=== PATIENT | female | born 1965 | race Caucasian/White ===

== ENCOUNTER 2019-10-11 14:16 | Emergency (ER) | payer OTHER ==
[~2019-10-11] VITALS: Ht 160 cm; Wt 49.0 kg
[2019-10-11] MEDS ORDERED: NITROGLYCERIN 0.4 MG SL TABS BTL 25'S SL ONE (14:26)
[2019-10-11] MEDS ORDERED: ASPIRIN 81 MG CHEW (CHILDREN'S ASA) PO ONE (14:30)
[2019-10-11 14:39] LABS: BASOPHILS % (AUTO) 0 % (0-10); EOSINOPHILS % (AUTO) 1 % (0-10); HEMATOCRIT 40 % (35-52); HEMOGLOBIN 13.6 G/DL (11.5-16.0); LYMPHOCYTES # (AUTO) 0.5 X 10^3 (1.0-4.0); LYMPHOCYTES % (AUTO) 7 % (12-44); MEAN CORPUSCULAR HEMOGLOBIN 33 PG (25-34); MEAN CORPUSCULAR HGB CONC 34 G/DL (32-36); MEAN CORPUSCULAR VOLUME 96 FL (80-99); MEAN PLATELET VOLUME 9.4 FL (7.4-10.4); MONOCYTES # (AUTO) 0.2 X 10^3 (0.0-1.0); MONOCYTES % (AUTO) 4 % (0-12); NEUTROPHILS # (AUTO) 5.5 X 10^3 (1.8-7.8); NEUTROPHILS % (AUTO) 88 % (42-75); PLATELET COUNT 196 10^3/uL (130-400); RED CELL DISTRIBUTION WIDTH 11.6 % (10.0-14.5); WHITE BLOOD COUNT 6.2 10^3/uL (4.3-11.0)
--- NOTE | 2019-10-11 14:43 | ED Cardiac General ---
History of Present Illness General Chief Complaint: Chest Pain Stated Complaint: NAUSEA,LIGHTHEADED,CHEST PAIN Source: patient Exam Limitations: no limitations History of Present Illness Date Seen by Provider: Oct 11, 2019 Time Seen by Provider: 14:40 Initial Comments ER with nausea without vomiting since 7:30 this morning, she also has some chest tightness in the center of her chest. Nothing exacerbates or alleviates the pain described as a tightness at 7 out of 10. No history of this. History of bilateral mastectomy due to positive BRCA gene. Timing/Duration: changing over time Severity: moderate Location: central Activities at Onset: none NTG SL DYE BLENDER: No ASA po DYE BLENDER: No Associated Systoms: Chest Pain; No Cough; Nausea/Vomiting Allergies and Home Medications Allergies Coded Allergies: No Known Drug Allergies (Unverified , 10/11/19) Patient Home Medication List Home Medication List Reviewed: Yes Review of Systems Review of Systems Constitutional: see HPI EENTM: No Symptoms Reported Cardiovascular: See HPI, Chest Pain Gastrointestinal: Nausea Genitourinary: No Symptoms Reported Musculoskeletal: no symptoms reported Skin: no symptoms reported Psychiatric/Neurological: No Symptoms Reported Endocrine: No Symptoms Reported Hematologic/Lymphatic: No Symptoms Reported Past Ymvmywi-Wejipv-Cpttgk Hx Patient Social History Recent Foreign Travel: No Contact w/Someone Who Travel: No Physical Exam Vital Signs Vital Signs - First Documented 10/11/19 14:19 Temp 38.2 Pulse 85 Resp 20 B/P (MAP) 116/73 (87) Pulse Ox 99 O2 Delivery Room Air Capillary Refill : Height, Weight, BMI Height: '" Weight: lbs. oz. kg; BMI Method: General Appearance: No Apparent Distress, WD/WN HEENT: PERRL/EOMI, TMs Normal Respiratory: No Accessory Muscle Use, No Respiratory Distress Cardiovascular: Regular Rate, Rhythm, Normal Peripheral Pulses Gastrointestinal: Normal Bowel Sounds, Non Tender, Soft Extremity: Normal Capillary Refill, Normal Inspection Neurologic/Psychiatric: Alert, Oriented x3 Skin: Normal Color, Warm/Dry Progress/Results/Core Measures Results/Orders Lab Results Laboratory Tests Test 10/11/19 14:30 10/11/19 16:55 Range/Units White Blood Count 6.2 4.3-11.0 10^3/uL Red Blood Count 4.18 L 4.35-5.85 10^6/uL Hemoglobin 13.6 11.5-16.0 G/DL Hematocrit 40 35-52 % Mean Corpuscular Volume 96 80-99 FL Mean Corpuscular Hemoglobin 33 25-34 PG Mean Corpuscular Hemoglobin Concent 34 32-36 G/DL Red Cell Distribution Width 11.6 10.0-14.5 % Platelet Count 196 130-400 10^3/uL Mean Platelet Volume 9.4 7.4-10.4 FL Neutrophils (%) (Auto) 88 H 42-75 % Lymphocytes (%) (Auto) 7 L 12-44 % Monocytes (%) (Auto) 4 0-12 % Eosinophils (%) (Auto) 1 0-10 % Basophils (%) (Auto) 0 0-10 % Neutrophils # (Auto) 5.5 1.8-7.8 X 10^3 Lymphocytes # (Auto) 0.5 L 1.0-4.0 X 10^3 Monocytes # (Auto) 0.2 0.0-1.0 X 10^3 Eosinophils # (Auto) 0.0 0.0-0.3 10^3/uL Basophils # (Auto) 0.0 0.0-0.1 10^3/uL Neutrophils % (Manual) 88 % Lymphocytes % (Manual) 7 % Monocytes % (Manual) 5 % Blood Morphology Comment NORMAL Prothrombin Time 13.2 12.2-14.7 SEC INR Comment 1.0 0.8-1.4 Activated Partial Thromboplast Time 30 24-35 SEC Sodium Level 141 135-145 MMOL/L Potassium Level 3.9 3.6-5.0 MMOL/L Chloride Level 106 98-107 MMOL/L Carbon Dioxide Level 28 21-32 MMOL/L Anion Gap 7 5-14 MMOL/L Blood Urea Nitrogen 16 7-18 MG/DL Creatinine 0.69 0.60-1.30 MG/DL Estimat Glomerular Filtration Rate > 60 BUN/Creatinine Ratio 23 Glucose Level 112 H 70-105 MG/DL Calcium Level 9.3 8.5-10.1 MG/DL Corrected Calcium 8.5-10.1 MG/DL Magnesium Level 1.9 1.6-2.4 MG/DL Total Bilirubin 0.6 0.1-1.0 MG/DL Aspartate Amino Transf (AST/SGOT) 18 5-34 U/L Alanine Aminotransferase (ALT/SGPT) 15 0-55 U/L Alkaline Phosphatase 71 40-136 U/L Myoglobin 28.1 10.0-92.0 NG/ML Troponin I < 0.028 < 0.028 <0.028 NG/ML Total Protein 7.3 6.4-8.2 GM/DL Albumin 4.7 H 3.2-4.5 GM/DL Micro Results Microbiology 10/11/19 Influenza Types A,B Antigen ([facility]) - Final, Complete My Orders Orders - BENJI BEAVER APRN Cbc With Automated Diff (10/11/19 14:21) Magnesium (10/11/19 14:21) Chest 1 View, Ap/Pa Only (10/11/19 14:21) Ekg Tracing (10/11/19 14:21) Comprehensive Metabolic Panel (10/11/19 14:21) Myoglobin Serum (10/11/19 14:21) Protime With Inr (10/11/19 14:21) Partial Thromboplastin Time (10/11/19 14:21) O2 (10/11/19 14:21) Monitor-Rhythm Ecg Trace Only (10/11/19 14:21) Lipid Panel (10/12/19 06:00) Ed Iv/Invasive Line Start (10/11/19 14:21) Aspirin Chewable Tablet (Baby Aspirin Ch (10/11/19 14:30) Nitroglycerin 0.4 Mg Btl 25's (Nitrostat (10/11/19 14:26) Influenza A And B Antigens (10/11/19 14:38) Manual Differential (10/11/19 14:30) Troponin I (10/11/19 14:30) Antacid Suspension (Mylanta Suspension (10/11/19 15:30) Lidocaine 2% Viscous 15 Ml (Xylocaine Vi (10/11/19 15:30) Troponin I (10/11/19 16:13) Ketorolac Injection (Toradol Injection) (10/11/19 17:30) Fentanyl Injection (Sublimaze Injection (10/11/19 17:30) Fentanyl Injection (Sublimaze Injection (10/11/19 17:24) Ketorolac Injection (Toradol Injection) (10/11/19 17:24) Ondansetron Injection (Zofran Injectio (10/11/19 18:00) Medications Given in ED Current Medications Medications Dose Ordered Sig/Lida Route Start Time Stop Time Status Last Admin Dose Admin Al Hydrox/Mg Hydrox/Simethicone 30 ml ONCE ONCE PO 10/11/19 15:30 10/11/19 15:31 DC 10/11/19 15:47 30 ML Aspirin 324 mg ONCE ONCE PO 10/11/19 14:30 10/11/19 14:31 DC 10/11/19 14:31 324 MG Fentanyl Citrate 25 mcg ONCE PRN IVP 10/11/19 17:30 10/11/19 17:33 25 MCG Ketorolac Tromethamine 15 mg ONCE ONCE IVP 10/11/19 17:30 10/11/19 17:31 DC 10/11/19 17:33 15 MG Lidocaine HCl 10 ml ONCE ONCE PO 10/11/19 15:30 10/11/19 15:31 DC 10/11/19 15:47 10 ML Nitroglycerin 0.4 mg STK-MED ONCE SL 10/11/19 14:26 10/11/19 14:31 DC 10/11/19 14:34 0.4 MG Ondansetron HCl 8 mg ONCE ONCE IVP 10/11/19 18:00 10/11/19 18:01 DC 10/11/19 18:08 8 MG Vital Signs/I&O 10/11/19 10/11/19 10/11/19 14:19 17:33 17:33 Temp 38.2 38.2 38.2 Pulse 85 Resp 20 B/P (MAP) 116/73 (87) Pulse Ox 99 O2 Delivery Room Air Diagnostic Imaging Diagonstic Imaging: Xray Comments NAME: ANASTASIYA YANG [facility] REC#: [id number] PT STATUS: REG ER : 1965 PHYSICIAN: BENJI BEAVER COLOR DIPPER ADMIT DATE: 10/11/19/ER Draft Date of Exam:10/11/19 CHEST 1 VIEW, AP/PA ONLY INDICATION: Lightheadedness and nausea. FINDINGS: The lungs are clear. There is no failure, effusion, or pneumothorax. IMPRESSION: No acute appearing abnormality. Dictated on workstation # [id number] Dict: 10/11/19 1513 Trans: 10/11/19 1515 [id number] Interpreted by: SANDI WASHINGTON Electronically signed by: Departure Communication (Admissions) Pain from the chest is gone, now is more of a bandlike pain left upper quadrant and right upper quadrant sparing the epigastric region. She now complains of a headache. Toradol and fentanyl given. 1817-advised to follow-up with primary care. Patient states that she sees [facility]. Unfortunately I'm not able to find etiology for the pain from the emergency room evaluation today. Impression Primary Impression: Chest pain Qualified Codes: R07.9 - Chest pain, unspecified Disposition: HOME, SELF-CARE Condition: Stable Departure-Patient Inst. Decision time for Depature: 17:29 Patient Instructions: Chest Pain (DC) Add. Discharge Instructions: 1. Follow-up with your regular doctor later this week for recheck 2. Return to ER for any concerns All discharge instructions reviewed with patient and/or family. Voiced understanding. BENJI BEAVER APRN Oct 11, 2019 14:43
[2019-10-11 14:54] LABS: PROTHROMBIN TIME PATIENT 13.2 SEC (12.2-14.7)
[2019-10-11 15:01] LABS: ALANINE AMINOTRANSFERASE 15 U/L (0-55); ALBUMIN 4.7 GM/DL (3.2-4.5); ALKALINE PHOSPHATASE 71 U/L (40-136); BILIRUBIN,TOTAL 0.6 MG/DL (0.1-1.0); BUN/CREATININE RATIO 23; CALCIUM 9.3 MG/DL (8.5-10.1); CARBON DIOXIDE 28 MMOL/L (21-32); CHLORIDE 106 MMOL/L (98-107); CREATININE SERUM 0.69 MG/DL (0.60-1.30); GFR ESTIMATED > 60; GLUCOSE 112 MG/DL (70-105); MAGNESIUM 1.9 MG/DL (1.6-2.4); POTASSIUM 3.9 MMOL/L (3.6-5.0); SODIUM 141 MMOL/L (135-145); TOTAL PROTEIN 7.3 GM/DL (6.4-8.2)
[2019-10-11 15:10] LABS: LYMPHOCYTES % (MANUAL) 7 %; MONOCYTES % (MANUAL) 5 %; NEUTROPHILS % (MANUAL) 88 %; RBC MORPH NORMAL
--- NOTE | 2019-10-11 15:15 | Diagnostic Imaging Report ---
INDICATION: Lightheadedness and nausea. FINDINGS: The lungs are clear. There is no failure, effusion, or pneumothorax. IMPRESSION: No acute appearing abnormality. Dictated by: Dictated on workstation # [id number]
[2019-10-11] MEDS ORDERED: ANTACID SUSP 30 ML UDC (MYLANTA) PO ONE (15:30)
[2019-10-11] MEDS ORDERED: LIDOCAINE 2% VISCOUS 15 ML UDC PO ONE (15:30)
[2019-10-11] MEDS ORDERED: KETOROLAC 30 MG/ML VIAL ONE (17:24)
[2019-10-11] MEDS ORDERED: fentaNYL INJECTION 100 MCG/2 ML AMP ONE (17:24)
[2019-10-11] MEDS ORDERED: KETOROLAC 30 MG/ML VIAL IVP ONE (17:30)
[2019-10-11] MEDS ORDERED: fentaNYL INJECTION 100 MCG/2 ML AMP IVP PRN (17:30)
[2019-10-11] MEDS ORDERED: ONDANSETRON 4 MG/2 ML (SDV) Z0FRAN IVP ONE (18:00)
[2019-10-11 18:20] VITALS: BP 91/62
== END 2019-10-11 18:20 | disposition home or self-care (01) ==
LOC: EDUNIT# 14:16 → ER 14:18
DX: R07.89 Other chest pain (principal)
CPT/HCPCS: 36415; 71045; 80053; 83735; 83874; 84484; 85007; 85027; 85610; 85730; 87804; 93005; 93041